=== PATIENT | male | born 1970 | race Caucasian/White ===

== ENCOUNTER 2016-11-13 17:57 | Emergency (ER) | payer OTHER ==
[2016-11-13 18:05] VITALS: RESP 16; TEMP 98.1
[2016-11-13] MEDS ORDERED: IBUPROFEN 600 MG TAB PO ONE (18:16)
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
[2016-11-13 18:57] VITALS: BP 133/80; PULSE 74; O2SAT 98
== END 2016-11-13 19:02 | disposition home or self-care (01) ==
DX: S16.1XXA Strain of muscle, fascia and tendon at neck level, initial encounter (principal); V53.5XXA Driver of pick-up truck or van injured in collision with car, pick-up truck or van in traffic accident, initial encounter; Y92.69 Other specified industrial and construction area as the place of occurrence of the external cause; Y99.8 Other external cause status; Y93.89 Activity, other specified